=== PATIENT | male | born 1970 | race Caucasian/White ===

== ENCOUNTER 2017-08-24 11:31 | Emergency (ER) | payer SELFPAY ==
[~2017-08-24] VITALS: Ht 180.3 cm; Wt 70.4 kg
[2017-08-24 11:53] LABS: HEMATOCRIT 42.5 % (38.0-50.0); MCH 31.4 PG (29.0-34.0); MCHC 35.3 G/DL (30.0-36.0); MCV 89.1 FL (86-99); PLATELET COUNT 272 K/uL (156-360); RBC DIS.WIDTH-CV 12.6 % (11.8-14.6); RBC DIS.WIDTH-SD 41.6 % (39-53); RED BLOOD COUNT 4.77 M/uL (4.00-5.50); WHITE BLOOD COUNT 8.5 K/uL (4.1-10.2)
[2017-08-24 12:09] LABS: CHLORIDE 103 mEq/L (99-109); POTASSIUM 4.6 mEq/L (3.7-5.4); SODIUM 138 mEq/L (136-147)
[2017-08-24 12:11] LABS: GLUCOSE 98 mg/dL (70-99)
[2017-08-24 12:14] LABS: CREATININE 0.9 mg/dL (0.6-1.3); GFR ESTIMATE (CALCULATED) > 59 mL/min/ (58.99-99999)
[2017-08-24 12:15] LABS: UREA NITROGEN (BUN) 11 mg/dL (9-23)
[2017-08-24 14:15] VITALS: BP 119/76
== END 2017-08-24 14:16 | disposition home or self-care (01) ==
LOC: EME 11:31
DX: R55 Syncope and collapse (principal)
CPT/HCPCS: 70450; 71046; 80048; 85027; 93005; 99281; 99285